=== PATIENT | female | born 1960 | race Caucasian/White ===

== ENCOUNTER 2017-09-18 04:50 | Emergency (ER) | payer BC ==
--- NOTE | 2017-09-18 05:48 | EDM.PDOC ---
ED HPI GENERAL MEDICAL PROBLEM - General Chief Complaint: Flank Pain Stated Complaint: right flank pain Time Seen by Provider: 09/18/17 05:41 Source of Information: Reports: Patient History Limitations: Reports: No Limitations - History of Present Illness INITIAL COMMENTS - FREE TEXT/NARRATIVE: Patient is a 57-year-old female who presents to the emergency Department this morning with a complaint of right flank and right lower abdominal pain. Patient states that pain woke her up from sleep at 3 a.m. this morning, initially isolated to right flank and then pain travel to right groin. She had 3 episodes of vomiting. Patient states that she has not had similar episodes in the past or any recent trauma to her low back. Patient denies fever, shortness of breath, chest pain, bowel changes, vaginal bleeding, or trauma. Onset: Today Onset Date: 09/18/17 Onset Time: 03:00 Duration: Hour(s):, Improving Location: Reports: Abdomen, Back Severity: Moderate Improves with: Reports: Medication (Motrin) Worsens with: Reports: None Context: Denies: Trauma Associated Symptoms: Reports: No Other Symptoms Right Flank Pain Score (Numeric/FACES): 5 - Related Data Allergies Allergy/AdvReac Type Severity Reaction Status Date / Time azithromycin Allergy Edema Verified 09/18/17 05:04 [From Zithromax Z-Babatunde] Penicillins Allergy Cannot Verified 09/18/17 05:04 Remember Home Meds: Home Meds Brinzolamide [Azopt 1% Ophth Susp] 1 drop EYEBOTH BID 09/18/17 [History] Cholecalciferol (Vitamin D3) [Vitamin D3] 1 tab PO DAILY 09/18/17 [History] Cyanocobalamin (Vitamin B-12) [Vitamin B-12] 1 tab PO DAILY 09/18/17 [History] Latanoprost [Latanoprost] 1 drop EYEBOTH BEDTIME 09/18/17 [History] Levothyroxine [Levothyroxine] 25 mcg PO DAILY 09/18/17 [History] Magnesium Amino Acid Chelate [Magnesium] 100 mg PO DAILY 09/18/17 [History] Timolol Maleate [Timolol Maleate] 1 drop EYEBOTH BID 09/18/17 [History] Past Medical History - Past Health History Medical/Surgical History: Denies Medical/Surgical History HEENT History: Reports: Glaucoma, Impaired Vision Endocrine/Metabolic History: Reports: Hypothyroidism Dermatologic History: Reports: Seborrheic Dermatitis - Infectious Disease History Infectious Disease History: Reports: Chicken Pox, Influenza - Past Surgical History HEENT Surgical History: Reports: LASIK, Oral Surgery GI Surgical History: Reports: Colonoscopy Female Surgical History: Reports: Section, LEEP Social & Family History - Tobacco Use Smoking Status *Q: Never Smoker - Recreational Drug Use Recreational Drug Use: No ED ROS GENERAL - Review of Systems Review Of Systems: ROS reveals no pertinent complaints other than HPI. Constitutional: Reports: No Symptoms HEENT: Reports: No Symptoms Respiratory: Reports: No Symptoms Cardiovascular: Reports: No Symptoms Endocrine: Reports: No Symptoms GI/Abdominal: Reports: Abdominal Pain, Nausea, Vomiting : Reports: Flank Pain (Right) Musculoskeletal: Reports: No Symptoms Skin: Reports: No Symptoms Neurological: Reports: No Symptoms Psychiatric: Reports: No Symptoms Hematologic/Lymphatic: Reports: No Symptoms Immunologic: Reports: No Symptoms ED EXAM, RENAL/ - Physical Exam Exam: See Below Exam Limited By: No Limitations General Appearance: Alert, WD/WN, No Apparent Distress Throat/Mouth: Normal Inspection, Normal Oropharynx, No Airway Compromise Head: Atraumatic, Normocephalic Neck: Normal Inspection Respiratory/Chest: No Respiratory Distress, Lungs Clear, Normal Breath Sounds, No Accessory Muscle Use, Chest Non-Tender Cardiovascular: Regular Rate, Rhythm, No Murmur GI/Abdominal: Normal Bowel Sounds, Soft, Non-Tender, No Organomegaly, No Distention, No Abnormal Bruit, No Mass Back Exam: Normal Inspection, Full Range of Motion. No: CVA Tenderness (L), CVA Tenderness (R) Extremities: Normal Inspection, No Pedal Edema Neurological: Alert, Oriented, Normal Cognition Psychiatric: Normal Affect, Normal Mood Skin Exam: Warm, Dry, Intact, Normal Color, No Rash Lymphatic: No Adenopathy Course - Vital Signs Last Recorded V/S: Last Vital Signs Temp 98.0 F 09/18/17 04:59 Pulse 81 09/18/17 04:59 Resp 16 09/18/17 04:59 BP 156/82 H 09/18/17 04:59 Pulse Ox 96 09/18/17 04:59 - Orders/Labs/Meds Orders: Active Orders 24 hr Category Date Time Status Abdomen Pelvis wo Cont [CT] Stat Exams 09/18/17 05:18 Ordered Abdomen Pelvis wo Cont [CT] Stat Exams 09/18/17 05:40 Ordered CBC WITH AUTO DIFF [HEME] Stat Lab 09/18/17 04:50 Received COMPREHENSIVE METABOLIC PN,CMP [CHEM] Stat Lab 09/18/17 04:50 Received UA W/MICROSCOPIC [URIN] Stat Lab 09/18/17 05:00 Received - Radiology Interpretation Free Text/Narrative:: CT abdomen and pelvis without contrast shows a 1.5 mm stone in the bladder, mild right hydronephrosis and no other stones visualized. CT Results Date: 09/18/17 - Re-Assessments/Exams Free Text/Narrative Re-Assessment/Exam: 09/18/17 06:42 Patient afebrile, vital signs stable, nontoxic appearing, pain relieved. Patient will follow-up with Dr. Grant in 2-3 days. Patient given a urinary strainer and cup for collection of stone. Departure - Departure Time of Disposition: 06:43 Disposition: Home, Self-Care 01 Clinical Impression: Renal calculi - Discharge Information Instructions: Kidney Stones, [id number], Pain Medicine Instructions, Easy-to- Read Referrals: Emily Fleming MD [Physician] - Additional Instructions: Follow-up with Dr. Grant in 2-3 days. Return to emergency department sooner if symptoms continue or worsen. - My Orders Last 24 Hours: My Active Orders 09/18/17 04:50 CBC WITH AUTO DIFF [HEME] Stat COMPREHENSIVE METABOLIC PN,CMP [CHEM] Stat 09/18/17 05:00 UA W/MICROSCOPIC [URIN] Stat 09/18/17 05:18 Abdomen Pelvis wo Cont [CT] Stat 09/18/17 05:40 Abdomen Pelvis wo Cont [CT] Stat - Assessment/Plan Last 24 Hours: My Active Orders 09/18/17 04:50 CBC WITH AUTO DIFF [HEME] Stat COMPREHENSIVE METABOLIC PN,CMP [CHEM] Stat 09/18/17 05:00 UA W/MICROSCOPIC [URIN] Stat 09/18/17 05:18 Abdomen Pelvis wo Cont [CT] Stat 09/18/17 05:40 Abdomen Pelvis wo Cont [CT] Stat Assessment:: Kidney stone Plan: Follow-up with Dr. Grant in 2-3 days
[2017-09-18 06:02] LABS: CHLORIDE,CL 106 mmol/L (98-115); SODIUM,NA 142 mmol/L (136-145)
[2017-09-18] MEDS: Ondansetron 4 MG/2 ML SDV IVPUSH ONE (06:14)
[2017-09-18] MEDS: Morphine 4 MG/ML Syringe IVPUSH ONE ×2 (06:14→06:40)
[2017-09-18] MEDS: Morphine 4 MG/ML Syringe ONE (06:15)
[2017-09-18] MEDS: Ondansetron 4 MG/2 ML SDV ONE (06:15)
[2017-09-18] MEDS: Ketorolac 30 MG/ML SDV IVPUSH ONE (06:35)
[2017-09-18] MEDS: Ketorolac 30 MG/ML SDV ONE (07:11)
[2017-09-18] MEDS: Acetaminophen/oxyCODONE 325-5 MG Tab PO ONE (07:11)
== END 2017-09-18 07:05 | disposition home or self-care (01) ==
LOC: KA.ED 04:50
DX: N13.2 Hydronephrosis with renal and ureteral calculous obstruction (principal); E03.9 Hypothyroidism, unspecified; Z88.1 Allergy status to other antibiotic agents; Z88.0 Allergy status to penicillin; Z79.899 Other long term (current) drug therapy
CPT/HCPCS: 74176; 80053; 81001; 85025; 96374; 96375; 99284; A9270; J1885; J2270; J2405